=== PATIENT | male | born 1955 | race Caucasian/White ===

== ENCOUNTER 2022-09-09 03:50 | Emergency (ER) | payer OTHER ==
[~2022-09-09] VITALS: Ht 182.9 cm; Wt 93.0 kg
[2022-09-09 03:57] VITALS: BP 111/68
--- NOTE | 2022-09-09 03:57 | NUR ---
KASANDRA GOMEZ. PT TO LOBBY
[2022-09-09] MEDS ORDERED: HYDROcodone/APAP 5/325 MG 1 TAB TAB PO ONE (04:10)
[2022-09-09] MEDS ORDERED: LID5T TP (04:13)
[2022-09-09] MEDS ORDERED: NAPR-54 PO (04:13)
[2022-09-09] MEDS ORDERED: ACET-5629 PO (04:13)
[2022-09-09 04:32] VITALS: BP 105/71
== END 2022-09-09 04:32 | disposition home or self-care (01) ==
LOC: MED 03:50
DX: M54.50 Low back pain, unspecified (principal)
CPT/HCPCS: 99283